=== PATIENT | male | born 1995 | race Caucasian/White ===

== ENCOUNTER 2018-04-26 18:17 | Emergency (ER) | payer OTHER ==
--- NOTE | 2018-04-26 20:52 | ERPHSYRPT ---
- History of Present Illness Time Seen by Provider: 04/26/18 20:00 Patient Subjective Stated Complaint: pt states while climbind down fromo a ladder he came down on his ankle wronog and twisted his rt ankle Triage Nursing Assessment: pt alert and oriented, [place] approp. pt transfer from wheelchair to stretcher per self, nwb on rt lower ext. respriations nonlabored with lungs cta. skin pink warm and dry. cap refill and pedal pusle to rt lower ext wnl. Physician History: 23 y/o white male presents with right ankle pain after missing a step on ladder while at work. twisted right ankle. no other complaints. Method of Injury: twisted Occurred: just prior to arrival Quality: constant, aching Severity of Pain-Max: mild Severity of Pain-Current: mild Lower Extremities Pain: ankle: right Modifying Factors: Improves With: movement Associated Symptoms: none Allergies/Adverse Reactions: No Known Drug Allergies Allergy (Verified 04/26/18 19:56) Home Medications: Seizure Medication 500 mg PO BID 04/26/18 [History] Hx Tetanus, Diphtheria Vaccination/Date Given: Yes Hx Influenza Vaccination/Date Given: No Hx Pneumococcal Vaccination/Date Given: No Immunizations Up to Date: Yes - Review of Systems Constitutional: No Symptoms Eyes: No Symptoms Ears, Nose, & Throat: No Symptoms Respiratory: No Symptoms Cardiac: No Symptoms Abdominal/Gastrointestinal: No Symptoms Genitourinary Symptoms: No Symptoms Musculoskeletal: Joint Pain (right ankle) Skin: No Symptoms Neurological: No Symptoms Psychological: No Symptoms Endocrine: No Symptoms Hematologic/Lymphatic: No Symptoms Immunological/Allergic: No Symptoms All Other Systems: Reviewed and Negative - Past Medical History Pertinent Past Medical History: Yes Neurological History: Seizures ENT History: No Pertinent History Cardiac History: No Pertinent History Respiratory History: No Pertinent History Endocrine Medical History: No Pertinent History Musculoskeletal History: No Pertinent History GI Medical History: No Pertinent History History: No Pertinent History Psycho-Social History: No Pertinent History Male Reproductive Disorders: No Pertinent History Other Medical History: last seizure approx 3mos. 1 kidney- congenital - Past Surgical History Past Surgical History: Yes Neuro Surgical History: No Pertinent History Cardiac: No Pertinent History Respiratory: No Pertinent History Gastrointestinal: No Pertinent History Genitourinary: No Pertinent History Musculoskeletal: No Pertinent History Male Surgical History: No Pertinent History - Social History Smoking Status: Never smoker Exposure to second hand smoke: No Drug Use: none Patient Lives Alone: No - Nursing Vital Signs Nursing Vital Signs: Initial Vital Signs Temperature 97.6 F 04/26/18 19:47 Pulse Rate 67 04/26/18 19:47 Respiratory Rate 16 04/26/18 19:47 Blood Pressure 156/84 04/26/18 19:47 O2 Sat by Pulse Oximetry 99 04/26/18 19:47 Pain Scale Pain Intensity 6 - Physical Exam General Appearance: no apparent distress, alert, anxiety Eyes, Ears, Nose, Throat Exam: normal ENT inspection, moist mucous membranes Neck Exam: normal inspection, non-tender, supple, full range of motion Cardiovascular/Respiratory Exam: chest non-tender Gastrointestinal/Abdominal Exam: non-tender Back Exam: normal inspection, normal range of motion, No CVA tenderness, No vertebral tenderness Hips Exam: bilateral: non-tender, normal inspection, normal range of motion, no evidence of injury Legs Exam: bilateral leg: non-tender, normal inspection, normal range of motion , no evidence of injury Knees Exam: bilateral knee: non-tender, normal inspection, normal range of motion, no evidence of injury Ankle Exam: right ankle: normal inspection, normal range of motion, no evidence of injury, bone tenderness, soft tissue tenderness, left ankle: non-tender Foot Exam: bilateral foot: non-tender, normal inspection, normal range of motion , no evidence of injury Neuro/Tendon Exam: normal sensation, normal motor functions, normal tendon functions, responds to pain Mental Status Exam: alert, oriented x 3, cooperative Skin Exam: normal color, warm SpO2 Interpretation: normal SpO2: 99 O2 Delivery: Room Air - Course Nursing assessment & vital signs reviewed: Yes Ordered Tests: Active Orders 24 hr Category Date Time Status ANKLE (3 VIEWS) Stat Exams 04/26/18 20:28 Ordered - Progress Progress Note: 04/26/18 20:52 xray-no acute fx or dislocation Counseled pt/family regarding: diagnosis, need for follow-up, rad results - Departure Time of Disposition: 20:52 Departure Disposition: Home Clinical Impression: Ankle sprain Condition: Stable Critical Care Time: No Referrals: DOCTOR,NO FAMILY [Primary Care Provider] - Additional Instructions: ice pack to area 3 times daily. use tylenol and ibuprofen for pain. follow up with primary doctor for further management
[2018-04-26] MEDS ORDERED: NORCO 5/325 MG PO ONE (20:54)
[2018-04-26] MEDS ORDERED: NORCO 5/325 MG ONE (21:00)
[2018-04-26 21:05] VITALS: BP 140/89; PULSE 73; O2SAT 100
--- NOTE | 2018-04-27 08:43 | XRAY ---
Indication: Pain following twisting injury. Comparison: None 3 views of the right ankle obtained. No bony, articular, or soft tissue abnormalities.
== END 2018-04-26 21:31 | disposition home or self-care (01) ==
LOC: ED 18:17
DX: S93.401A Sprain of unspecified ligament of right ankle, initial encounter (principal); W50.2XXA Accidental twist by another person, initial encounter; Y93.89 Activity, other specified; Y92.89 Other specified places as the place of occurrence of the external cause; Y99.0 Civilian activity done for income or pay; G40.909 Epilepsy, unspecified, not intractable, without status epilepticus
CPT/HCPCS: 73610; 99283; A9270-GY

== ENCOUNTER 2018-09-27 15:25 | Emergency (ER) | payer BC, OTHER ==
[2018-09-27] MEDS ORDERED: XYLOCAINE 1% HCL 20 ML MDV IJ ONE (15:41)
--- NOTE | 2018-09-27 15:45 | ERPHSYRPT ---
- History of Present Illness Time Seen by Provider: 09/27/18 15:36 Source: patient Exam Limitations: no limitations Physician History: Pt states, he accidentally stepped in something yesterday morning, when getting out of his bed, it has been painful, denies other injury or complaints. His tetanus is up to date. Method of Injury: other (stepped in something) Occurred: yesterday Quality: constant Severity of Pain-Max: mild Severity of Pain-Current: mild Lower Extremities Pain: foot: right Modifying Factors: Improves With: nothing Associated Symptoms: none Allergies/Adverse Reactions: No Known Drug Allergies Allergy (Verified 09/27/18 15:46) Home Medications: No Reportable Medications [No Reported Medications] 09/27/18 [History] Hx Tetanus, Diphtheria Vaccination/Date Given: Yes Hx Influenza Vaccination/Date Given: No Hx Pneumococcal Vaccination/Date Given: No - Review of Systems Constitutional: No Symptoms Respiratory: No Symptoms Cardiac: No Symptoms Abdominal/Gastrointestinal: No Symptoms Musculoskeletal: Other (small splinter in right plantar foot.) All Other Systems: Reviewed and Negative - Past Medical History Pertinent Past Medical History: Yes Neurological History: Seizures ENT History: No Pertinent History Cardiac History: No Pertinent History Respiratory History: No Pertinent History Endocrine Medical History: No Pertinent History Musculoskeletal History: No Pertinent History GI Medical History: No Pertinent History History: No Pertinent History Psycho-Social History: No Pertinent History Male Reproductive Disorders: No Pertinent History Other Medical History: last seizure approx 3mos. 1 kidney- congenital - Past Surgical History Past Surgical History: Yes Neuro Surgical History: No Pertinent History Cardiac: No Pertinent History Respiratory: No Pertinent History Gastrointestinal: No Pertinent History Genitourinary: No Pertinent History Musculoskeletal: No Pertinent History Male Surgical History: No Pertinent History - Social History Smoking Status: Never smoker Exposure to second hand smoke: No Drug Use: none Patient Lives Alone: No - Nursing Vital Signs Nursing Vital Signs: Initial Vital Signs Temperature 98.7 F 09/27/18 15:34 Pulse Rate 87 09/27/18 15:34 Blood Pressure 148/78 09/27/18 15:34 O2 Sat by Pulse Oximetry 96 09/27/18 15:34 Pain Scale Pain Intensity 3 - Physical Exam General Appearance: no apparent distress Eyes, Ears, Nose, Throat Exam: normal ENT inspection Neck Exam: normal inspection, non-tender Cardiovascular/Respiratory Exam: chest non-tender, normal breath sounds, heart sounds normal Back Exam: normal inspection Foot Exam: right foot: soft tissue tenderness (right plantar foot, lateral edge : small splinter under the skin, no redness or discharge.) Mental Status Exam: alert, oriented x 3 Skin Exam: normal color, warm, dry SpO2 Interpretation: normal O2 Delivery: Room Air Procedures - Additional Procedures Progress: splinter removal from right plantar foot: after Betadine cleaning, 1% Lidocaine infiltration ( 3 ml) 3-4 mm wood splinter removed with 18 gauge needle at once, wound washed out with Betadine, and treated with Bactracin dressing. - Course Nursing assessment & vital signs reviewed: Yes Ordered Tests: Active Orders 24 hr Category Date Time Status Wound Care STAT Care 09/27/18 15:41 Active Medication Summary Discontinued Medications Generic Name Dose Route Start Last Admin Trade Name Bolivarq PRN Reason Stop Dose Admin Lidocaine HCl 5 ml 09/27/18 15:41 Xylocaine 1% Hcl 20 Ml Mdv IJ 09/27/18 15:42 STAT ONE - Progress Progress: improved Progress Note: 09/27/18 16:02 Splinter removed with 18 gauge needle. Pt is discharged advising to rest with elevated leg, and clean his wound daily with antiseptic solution, andcontinue antibiotic ointment dressing daily. Counseled pt/family regarding: need for follow-up - Departure Departure Disposition: Home Clinical Impression: Splinter in skin Condition: Stable Critical Care Time: No Instructions: Foreign Body in Skin (DC) Additional Instructions: Rest x 1-2 days with elevated leg, clean wound daily with antiseptic solution and Bactracin ointment dressing, return if severe pain, redness, discharge or fever> 101 F!
[2018-09-27 15:46] VITALS: BP 148/78; O2SAT 96
[2018-09-27] MEDS ORDERED: BACIGUENT PACKET TP ONE (15:59)
[2018-09-27] MEDS ORDERED: XYLOCAINE 1% HCL 20 ML MDV ONE (15:59)
[2018-09-27] MEDS ORDERED: BACIGUENT PACKET ONE (16:02)
[2018-09-27 16:37] VITALS: PULSE 896
== END 2018-09-27 16:34 | disposition home or self-care (01) ==
LOC: ED 15:25
DX: S90.851A Superficial foreign body, right foot, initial encounter (principal); W45.8XXA Other foreign body or object entering through skin, initial encounter
CPT/HCPCS: 99283; A9270-GY